=== PATIENT | female | born 1960 | race Caucasian/White ===

== ENCOUNTER 2017-10-23 11:28 | Emergency (ER) | payer OTHER, MEDICAID ==
[~2017-10-23] VITALS: Ht 172.7 cm; Wt 90.7 kg
[2017-10-23 11:28] VITALS: BP_SYST 97
--- NOTE | 2017-10-23 11:28 | NUR ---
BROUGHT IN BY [facility], PLACED IN HALLWAY AND TRIAGED. REPORT GIVEN TO PATRICIA
[2017-10-23] MEDS ORDERED: KETOROLAC TROMETHAMINE 60 MG/2 ML VIAL IM ONE (11:45)
--- NOTE | 2017-10-23 11:50 | NUR ---
Pt from [facility] with c/o lightheadeness and dizziness upon standing from a chair, then c/o SOB, appeared pale, abdominal pain. Denies LOC, -N/V/D. Pt alert, responsive, skin pink, no SOB at this time. Denies c/o C/P. Sitter at bedside.
--- NOTE | 2017-10-23 11:50 | NUR ---
Patient to ER bed 7 to gown for evaluation. Side rails up. Report given to Adam TOM.
--- NOTE | 2017-10-23 12:00 | NUR ---
Dr. Glynn at bedside to assess pt.
[2017-10-23 12:26] LABS: BASOPHILS % (AUTO) 0.3 % (0.0-2.0); EOSINOPHILS # (AUTO) 0.1 K/uL (0.0-0.4); EOSINOPHILS % (AUTO) 1.2 % (0.0-4.0); HEMATOCRIT 37.4 % (36-48); HEMOGLOBIN 12.3 g/dL (12.0-16.0); LYMPHOCYTES # (AUTO) 0.8 K/uL (1.0-5.5); LYMPHOCYTES % (AUTO) 8.4 % (20.5-51.5); MEAN CORPUSCULAR HEMOGLOBIN 31 pg (27-31); MEAN CORPUSCULAR HGB CONC 33 % (32-36); MEAN CORPUSCULAR VOLUME 94 fL (79.0-98.0); MONOCYTES # (AUTO) 0.4 K/uL (0.0-1.0); MONOCYTES % (AUTO) 4.4 % (1.7-9.3); NEUTROPHILS # (AUTO) 8.1 K/uL (1.8-7.7); NEUTROPHILS % (AUTO) 85.7 % (40.0-70.0); PLATELET COUNT (AUTO) 214 K/uL (130-430); RED BLOOD CELL COUNT(AUTO) 3.96 MIL/uL (4.2-6.2); RED CELL DISTRIBUTION WIDTH 12.8 % (9.0-15.0); WHITE BLOOD COUNT (AUTO) 9.4 K/uL (4.8-10.8)
[2017-10-23 12:32] LABS: CALCIUM 9.2 mg/dL (8.4-11.0); CREATININE 1.1 mg/dL (0.55-1.30); POTASSIUM 3.5 mmol/L (3.5-5.1)
[2017-10-23 12:36] LABS: ALBUMIN 4.1 g/dL (3.4-4.8); TOTAL BILIRUBIN 0.2 mg/dL (0.0-1.0)
[2017-10-23 13:02] VITALS: BP_SYST 110
--- NOTE | 2017-10-23 13:02 | NUR ---
Patient given written and verbal discharge instructions and verbalizes understanding. ER MD discussed with patient the results and treatment provided. Patient in stable condition. ID arm band removed. Rx of Miralax given. Patient educated on pain management and to follow up with PMD. Pain Scale 0/10. Opportunity for questions provided and answered.
== END 2017-10-23 13:02 | disposition home or self-care (01) ==
LOC: SED 11:28
DX: K59.00 Constipation, unspecified (principal); R55 Syncope and collapse
CPT/HCPCS: 36415; 74000; 80053; 83690; 85025; 93005; 96372; 99285; J1885